=== PATIENT | male | born 1950 | race Caucasian/White ===

== ENCOUNTER 2019-07-13 14:30 | Inpatient (IN) ==
--- NOTE | 2019-07-13 14:56 | EKG Report ---
Test Performed on : 07/13/2019 2:52:46 PM Test Reason : cp Blood Pressure : / mmHG Vent. Rate : 079 BPM Atrial Rate : 079 BPM P-R Int : 132 ms QRS Dur : 092 ms QT Int : 404 ms P-R-T Axes : 034 014 136 degrees QTc Int : 463 ms Normal sinus rhythm. Inferior infarct (cited on or before 20-NOV-2018) ST & T wave abnormality, consider lateral ischemia Abnormal ECG When compared with ECG of 20-NOV-2018 18:29, T wave inversion more evident in Lateral leads Unconfirmed Result
[2019-07-13] MEDS ORDERED: ZOFRAN IV ONE (14:59)
--- NOTE | 2019-07-13 15:34 | Diag Imaging Result Doc PS360 ---
CHEST-1 VIEW - 07/13/2019 INDICATION: cp COMPARISON: 11/20/2018 FINDINGS: Stable sternotomy changes. The lungs are clear. Heart size is normal. No pneumothorax or pleural effusion. IMPRESSION: No acute disease or change from prior. Electronically signed by Jorge A Lopez 07/13/2019 3:32 PM
[2019-07-13 15:55] LABS: BASO# 0.04 X1000 (0.0-0.2); BASO% 0.5 % (0.0-0.8); EOS# 0.11 X1000 (0.0-0.7); EOS% 1.3 % (0.0-10.0); HEMATOCRIT 35.9 % (42.0-52.0); HEMOGLOBIN 11.7 g/dL (14.0-18.0); IMM GRAN# 0.09 X1000 (0.0-0.04); LYMPH# 1.39 X1000 (1.2-3.4); LYMPH% 16.2 % (20.5-51.1); MCH 27.6 PG (27-31); MCHC 32.6 g/dL (33-37); MCV 84.7 FL (81-99); MONO# 0.89 X1000 (0.11-0.59); MONO% 10.3 % (1.7-9.3); MPV 10.4 FL (7.4-10.4); NEUT# 6.08 X1000 (1.4-6.5); NEUT% 70.7 % (42.2-75.2); PLT 211 X1000 (130-400); RBC 4.24 XMIL (4.7-6.1); RDW 13.6 % (11.5-14.5)
[2019-07-13 16:14] LABS: ALB/GLOB RATIO 1.6; ALBUMIN 4.5 g/dL (3.5-5.0); CALCIUM 9.7 mg/dL (8.8-10.2); CREATININE 1.5 mg/dL (0.7-1.2); POTASSIUM 4.9 mmol/L (3.5-5.1); TOTAL BILIRUBIN 0.59 mg/dL (0.20-1.00); TOTAL PROTEIN 7.3 g/dL (6.3-8.3)
[2019-07-13] MEDS ORDERED: DILAUDID IV ONE (17:07)
[2019-07-13 17:42] LABS: INR 1.18; PROTIME 15.2 Seconds (11.0-16.0); PTT 26.7 Seconds (22.3-41.8)
--- NOTE | 2019-07-13 18:25 | PROVIDER DOCUMENTATION ---
This chart was entered by Delia Diaz Scribe, acting as scribe for Jordan Interiano MD. HPI-Chest Pain - General Stated Complaint: CP Time Seen by Provider: 07/13/19 14:49 Source: patient, family Allergies/Adverse Reactions: Patient Allergies Allergy/AdvReac Type Severity Reaction Status Date / Time No Known Allergies Allergy Verified 11/20/18 18:43 Home Medications: Home Medication List Medication Instructions Recorded Confirmed Last Taken Type ATORVAstatin [Lipitor] 40 mg PO DAILY 03/25/17 07/13/19 09/01/18 23:00 History Insulin Aspart [Novolog Flexpen] 23 units SQ AC 03/25/17 07/13/19 09/01/18 23:00 History Insulin Detemir [Levemir] 78 units SQ BID 03/25/17 07/13/19 09/01/18 23:00 History Isosorbide Dinitrate 60 mg PO DAILY 03/25/17 07/13/19 09/01/18 23:00 History Metformin [Glucophage] 1,000 mg PO BID 03/25/17 07/13/19 09/01/18 23:00 History Omeprazole 20 mg PO DAILY 03/25/17 07/13/19 09/01/18 23:00 History Carvedilol 3.125 mg PO BID 06/09/18 07/13/19 09/01/18 23:00 History Cyanocobalamin [Vitamin B-12] 500 mcg PO BID 06/09/18 07/13/19 09/01/18 23:00 History Clopidogrel Bisulfate [Clopidogrel] 75 mg PO QAM 07/13/19 07/13/19 Unknown History Ranolazine [Ranolazine ER] 1,000 mg PO QAM 07/13/19 07/13/19 Unknown History Torsemide [Demadex] 20 mg PO QAM 07/13/19 07/13/19 Unknown History Valsartan 160 mg PO QAM 07/13/19 07/13/19 Unknown History - History of Present Illness-CP Nature of Presenting Problem: 69yom presents to ED by EMS cc left side chest pain under left breast that doesn't radiate anywhere, N/V, lightheaded and dizzy for last 3 days that is increasing. at bedside and reports pt got pale/padilla/weak while outside earlier and did this same thing when he was seen in ED in October for a [place]. Pt has hx of DM, HTN and [place] w/bypass and stents. Pt is in no acute distress upon exam. Location: reports: central (left side) Chest Pain Radiation: reports: no radiation Severity in ED: mild Onset/Duration: 3 days ago Timing: improving Context/Activities at Onset: reports: light activity Associated Symptoms: reports: dizziness, nausea, vomiting, weakness Prior Chest Pain/Cardiac Workup: reports: heart attack Similar Symptoms Previously?: Yes Recently Seen Here or By Another Healthcare Provider: No Review of Systems - Adult - REVIEW OF SYSTEMS - ADULT Constitutional: reports: see HPI, fatique. denies: chills, fever Eyes: reports: no symptoms reported Ears, Nose, Mouth & Throat: reports: no symptoms reported Cardiovascular: reports: see HPI, chest pain. denies: palpitations, syncope Respiratory: reports: no symptoms reported Gastrointestinal: reports: see HPI, nausea, vomiting Genitourinary: reports: no symptoms reported Musculoskeletal: reports: no symptoms reported Integumentary: reports: no symptoms reported Neurological: reports: see HPI, dizziness/vertigo. denies: syncope Psychiatric: reports: no symptoms reported Endocrine: reports: no symptoms reported Hematologic/Lymphatic: reports: no symptoms reported Allergic/Immunologic: reports: no symptoms reported All Other Systems: Reviewed and Negative Past History - Adult - PAST MEDICAL HISTORY-ADULT Review of Records: reports: Nursing Assessment Review, Medications Reviewed, Social history reviewed & non-contributory. Major Childhood Illnesses: reports: denies history Cardiovascular: reports: CAD, HTN Respiratory: reports: denies history Gastrointestinal: reports: denies history Obstetrical/Gynecological: reports: denies history Genitourinary: reports: denies history Musculoskeletal: reports: denies history Neurological: reports: denies history Endocrine/Immune: reports: anemia, Diabetes Other Conditions: reports: denies history - PRIOR SURGERIES/PROCEDURES Surgical/Procedure History: reports: CABG, other - IMMUNIZATION STATUS Childhood Immunizations: See Nurse Assessment Flu Vaccine: See Nurse Assessment - FAMILY HISTORY Family History: reviewed, not pertinent Physical Exam-General - PHYSICAL EXAM-ADULT Initial Vital Signs Reviewed: Yes - CONSTITUTIONAL General Appearance: appears well, alert, no apparent distress. negative: anxious, combative - EYES Eyes: PERRL/EOMI, pink conjunctivae. negative: photophobia - HEAD, EARS, NOSE, MOUTH & THROAT HENMT: normocephalic/atraumatic, moist mucous membranes - NECK Neck: non-tender, full range of motion, supple - RESPIRATORY Respiratory: chest non-tender, lungs clear, normal breath sounds. negative: rhonchi, wheezing - CARDIOVASCULAR Cardiovascular: normal peripheral pulses, regular rate, rhythm, no edema. negative: bradycardia, tachycardia - GASTROINTESTINAL (ABDOMEN) Abdominal Exam: normal bowel sounds, non tender, soft. negative: guarding, rebound - LYMPHATIC Lymphatic: no adenopathy - MUSCULOSKELETAL Extremity: normal range of motion, normal inspection. negative: deformity - SKIN Integumentary: normal color. negative: diaphoresis, jaundice - PSYCHIATRIC Psych/Mental Status: normal mood/affect, oriented x 3. negative: anxious, disheveled - HEART Score HEART Score: History: Highly Suspicious HEART Score: ECG: Non-Specific Repolarization Disturbance/LBBB/PM HEART Score: Age: > or = 65 Years HEART Score: Risk Factors for Atherosclerotic Disease: > or = 3 Risk Factors or History of Atherosclerotic Disease HEART Score: Troponin: < or = Normal Limit Total HEART Score:: 7 Progress - PLAN OF CARE/RESULTS Progress/Plan/Lab Results: Vital Signs - 8 hr 07/13/19 14:45 07/13/19 14:46 07/13/19 14:47 Temperature 98.4 F Pulse Rate 81 85 80 Respiratory Rate 23 21 17 Blood Pressure 157/79 157/79 O2 Sat by Pulse Oximetry 98 07/13/19 15:00 07/13/19 15:03 07/13/19 15:15 Temperature Pulse Rate 78 80 78 Respiratory Rate 16 16 15 Blood Pressure 146/59 O2 Sat by Pulse Oximetry 98 97 96 07/13/19 15:30 07/13/19 15:33 07/13/19 15:45 Temperature Pulse Rate 74 72 73 Respiratory Rate 17 15 17 Blood Pressure 101/46 O2 Sat by Pulse Oximetry 97 94 L 94 L 07/13/19 16:00 07/13/19 16:02 07/13/19 16:15 Temperature Pulse Rate 79 72 70 Respiratory Rate 14 14 13 Blood Pressure 120/51 O2 Sat by Pulse Oximetry 95 94 L 92 L Laboratory Results - last 24 hr 07/13/19 07/13/19 07/13/19 14:57 14:57 14:57 WBC 8.60 RBC 4.24 L Hgb 11.7 L Hct 35.9 L MCV 84.7 MCH 27.6 MCHC 32.6 L RDW Std Deviation 13.6 Plt Count 211 MPV 10.4 Immature Gran % (Auto) 1.0 H Neut % (Auto) 70.7 Lymph % (Auto) 16.2 L [place] % (Auto) 10.3 H Eos % (Auto) 1.3 Baso % (Auto) 0.5 Immature Gran # (Auto) 0.09 H Neut # (Auto) 6.08 Lymph # (Auto) 1.39 [place] # (Auto) 0.89 H Eos # (Auto) 0.11 Baso # (Auto) 0.04 PT INR PTT (Actin FS) Sodium 138 Potassium 4.9 Chloride 99 Carbon Dioxide 26 Anion Gap 13 BUN 18 Creatinine 1.5 H Estimated GFR/1.73 m2 46 BUN/Creatinine Ratio 12 Glucose 191 H POC Glucose Calculated Osmolality 283 Calcium 9.7 Total Bilirubin 0.59 AST 20 ALT 14 Alkaline Phosphatase 60 Troponin T Uvb-[id number]-Jiszubvvpyx Pept 378 H Total Protein 7.3 Albumin 4.5 Globulin 2.8 Albumin/Globulin Ratio 1.6 07/13/19 07/13/19 07/13/19 14:57 16:18 17:27 WBC RBC Hgb Hct MCV MCH MCHC RDW Std Deviation Plt Count MPV Immature Gran % (Auto) Neut % (Auto) Lymph % (Auto) [place] % (Auto) Eos % (Auto) Baso % (Auto) Immature Gran # (Auto) Neut # (Auto) Lymph # (Auto) [place] # (Auto) Eos # (Auto) Baso # (Auto) PT 15.2 INR 1.18 PTT (Actin FS) 26.7 Sodium Potassium Chloride Carbon Dioxide Anion Gap BUN Creatinine Estimated GFR/1.73 m2 BUN/Creatinine Ratio Glucose POC Glucose 161 H Calculated Osmolality Calcium Total Bilirubin AST ALT Alkaline Phosphatase Troponin T < 0.010 Kbl-[id number]-Vbkwddmblig Pept Total Protein Albumin Globulin Albumin/Globulin Ratio Orders Category Date Time Status Nursing- Obtain EKG ONCE Care 07/13/19 14:51 Active CHEST-1 VIEW [RAD] Stat Exams 07/13/19 14:51 Completed CBC WITH ELECTRONIC DIFF [HEME] Stat Lab 07/13/19 14:57 Completed COMPREHENSIVE METABOLIC PANEL [CHEM] Stat Lab 07/13/19 14:57 Completed PRO B-NATRIURETIC PEPTIDE Stat Lab 07/13/19 14:57 Completed PROTIME WITH INR [COAG] Stat Lab 07/13/19 17:27 Completed PTT [COAG] Stat Lab 07/13/19 17:27 Completed TROPONIN T Stat Lab 07/13/19 14:57 Completed Hydromorphone [Dilaudid] Med 07/13/19 17:07 Discontinued 1 mg IV NOW ONE Ondansetron [Zofran] Med 07/13/19 14:59 Discontinued 4 mg IV NOW ONE EKG [EKG] Stat Ther 07/13/19 14:51 Draft Result Diagrams: 07/13/19 14:57 07/13/19 14:57 - EKG 1 Time of EKG reading by physician:: 15:05 EKG Read and Signed by:: Jordan Interiano EKG Interpretation (*Must complete 3 of following elements*): Abnormal (inferior infarct ST & T wave abnormality consider lateral ischemia) Rate: 79 Rhythm: nsr QRS: normal DC Interval: normal - XRAY 1 XRAY: Bilateral XRAY Study: Chest Impression: See EMR Report (IMPRESSION: No acute disease or change from prior. Electronically signed by Jorge A Lopez 07/13/2019 3:32 PM) - CONSULTS/PCP/HOSPITALIST Notification #1 *Consult/PCP/Hospitalist*: Dr Grande Time Discussed: 18:24 Consult Disposition: Will see in ED, Admit Departure - Departure Date of Disposition Decision: 07/13/19 Time of Disposition Decision: 18:23 DIAGNOSIS: Chest pain, Near syncope Disposition: ADMITTED INPATIENT 09 Certified Medical Emergency: Emergent Condition: Fair Additional Instructions: ED Follow Up Instructions: You have been treated by a care provider in the Emergency Department. These instructions are being provided to you so you can have an understanding of how t o care for yourself upon discharge. Upon discharge from the Emergency Department, you are responsible for making arrangements for follow-up care by a physician of your choice. Take all prescribed medications as directed. Return to the Emergency Department immediately for any new or worsening symp toms. You may call the Physician Referral phone number at [phone] to obtain a list of Physicians who are taking new patients. Referrals and Follow-Ups: Joey,Hiteshri S., MD [Primary Care Provider] - - Critical Care Note This patient required my direct & personal management of CC.: No Attestation - Physician/ KIERSTEN Attestation Patient care was provided by Advanced Practice Provider:: No The physician spent face to face time with patient:: Yes Advanced Practice Provider documentation review:: Supervising physician onsite and consulted in the evaluation and care of this patient. The physician did have a face to face encounter with the patient. This chart was documented by the indicated scribe, (Delia Diaz Scribe) and accurately reflects the services I performed and decisions made by me, Jordan Interiano MD, as attested by the provider's signature.
[2019-07-13] MEDS ORDERED: ZOFRAN IV PRN (18:44)
--- NOTE | 2019-07-13 19:49 | HISTORY AND PHYSICAL ---
PRIMARY CARE PHYSICIAN: Dr. Cook. ROCKET SCIENTIST: Dr. Tolbert. HISTORY OF PRESENTING COMPLAINT: Mr. Gamez is a 69-year-old brittle diabetic patient on insulin regimen, hypertension, ischemic cardiomyopathy status post CABG and multiple stents, last stent was October of this year. Follows up with Dr. Tolbert in [place] [place]. Mr. Gamez refers that he also has chronic diarrhea. Mr. Gamez refers that for the past couple of weeks, he has been having excessive nausea and vomiting associated with profuse diarrhea. He said he normally has diarrhea, but it has been more frequent lately in the past week or 2. This morning, he was working with his , doing some work on a car, and after he stood up he felt quite nauseated, so he went to sit down in a chair. He felt even weaker and he felt like he was going to pass out. According to the , Mr. Gamez looked pale and there were a couple instances that she thinks Mr. Gamez really passed out. He did vomit prior to that. Mr. Gamez also did complain of some chest discomfort during the episode of almost blacking out. He was brought into the emergency department where he was evaluated. He was found to have initial vitals, blood pressure was 157/79, pulse of 81, respiration was 23, temperature 98.4 degrees. PAST MEDICAL HISTORY: 1. Diabetes mellitus. 2. Hypertension. 3. Coronary artery disease. 4. Dyslipidemia. 5. Severe degenerative disk back disease. PAST SURGICAL HISTORY: 1. CABG. 2. Multiple stents. HOME MEDICATIONS: Include: 1. Insulin. 2. Levemir 78 units b.i.d. 3. Atorvastatin 40 mg p.o. daily. 4. Isosorbide 60 mg p.o. daily. 5. NovoLog 23 units subcutaneous. 6. Metformin 1000 mg b.i.d. 7. Omeprazole 20 mg p.o. daily. 8. Carvedilol 3.125 b.i.d. 9. Cyanocobalamin. 10. Torsemide 20 mg p.o. in the morning. 11.1000 mg p.o. in the morning. 12. Losartan 160 p.o. in the morning. 13. Clopidogrel 75 mg p.o. in the morning. FAMILY HISTORY: Positive for almost every family member with ischemic cardiomyopathy including brother, mother, father, grandparents. SOCIAL HISTORY: Mr. Gamez stopped smoking about 20 some years ago. Denies any tobacco use currently. Denies any alcohol use. Currently , lives with the . He is currently disabled. ALLERGIES: None known. REVIEW OF SYSTEMS: A 14 point review of system conducted with Mr. Gamez, unremarkable except what we have in the HPI. Specifically, Mr. Gamez refers that he denies any cough. No sputum production. No fever, no headaches. PHYSICAL EXAMINATION: VITAL SIGNS: Current blood pressure was 109/54, with a pulse of 71 on supine. Sitting up, blood pressure was 104/50 with a pulse of 74. The patient did feel slightly dizzy and nauseated after he sat up. GENERAL: Mr. Gamez is a 69-year-old gentleman. He was in bed. He did not seem to be in any cardiopulmonary distress. HEENT: Mucosa was pink and moist. Anicteric. Acyanotic. Head is normocephalic and atraumatic. NECK: Supple. CHEST: There is good air entry bilaterally. No crepitations. No rhonchi. There was no accessory muscle use. CARDIOVASCULAR: Regular rate and rhythm. No murmurs, no rubs, no gallops. [place] beat was at the 5th intercostal space, midclavicular line. There is an old sternotomy scar on the anterior chest wall. ABDOMEN: Soft, nontender. Bowel sounds present. No hepatosplenomegaly. EXTREMITIES: No pedal edema. Distal pulses are present but remarkably low. GENITOURINARY: Was not examined. CENTRAL NERVOUS SYSTEM: Patient was awake, alert, and oriented. Slightly dizzy but the power was 5/5 in all extremities. Sensation was intact. Cranial nerves 2-12 were grossly examined and they were unremarkable. LABORATORY DATA: Has also been reviewed. There is mild normocytic anemia with normal platelet count and normal WBC. Creatinine is slightly elevated at 1.5. IMAGING STUDIES: A chest x-ray shows no acute disease. EKG shows normal sinus rhythm with some T- wave inversion in the lateral leads. There are also remarkable Q-waves in the inferior leads. These changes were also on an EKG in October of this year, no changes. ASSESSMENT: Mr. Gamez with multiple comorbidities who presented with near syncope/syncopal episode. 1. Near-syncope/syncopal episode presumably related to volume depletion and vasovagal reaction. 2. Extensive history of coronary artery disease status post CABG, stents. The patient also complained of chest pain which I think could be related to the syncopal episode. However, I think it is reasonable to rule out any acute coronary syndrome in him. His troponins have been checked once, unremarkable. Will continue to trend this. 3. Acute kidney injury presumably from volume depletion. We will gently hydrate him overnight. I have withheld his Lasix and his ARB. 4. History of diabetes mellitus. We will continue with insulin regimen. 5. Hypertension, controlled. 6. Dyslipidemia. PLAN: So in general, we are going to admit Mr. Gamez in [facility] under tele monitoring. I have withheld his Lasix and his blood pressure medication. Would hydrate him over the course of tonight, trend his troponins, and repeat his EKG in the morning, and we will consult Cardiology to evaluate him. We will also request his recent stress test result from Dr. Tolbert's office. cc: Jose J Grande MD MTDD
[2019-07-13] MEDS: LOVENOX SUBQ SCH (21:02)
[2019-07-13] MEDS: NS 1,000 ML IV SCH (21:02)
[2019-07-14] MEDS: COREG PO SCH ×3 (00:07→21:24)
[2019-07-14 06:18] LABS: BASO# 0.03 X1000 (0.0-0.2); BASO% 0.4 % (0.0-0.8); EOS# 0.13 X1000 (0.0-0.7); EOS% 1.8 % (0.0-10.0); HEMATOCRIT 33.1 % (42.0-52.0); HEMOGLOBIN 10.7 g/dL (14.0-18.0); IMM GRAN# 0.07 X1000 (0.0-0.04); LYMPH# 1.57 X1000 (1.2-3.4); LYMPH% 22.2 % (20.5-51.1); MCH 27.9 PG (27-31); MCHC 32.3 g/dL (33-37); MCV 86.2 FL (81-99); MONO# 0.72 X1000 (0.11-0.59); MONO% 10.2 % (1.7-9.3); MPV 10.7 FL (7.4-10.4); NEUT# 4.54 X1000 (1.4-6.5); NEUT% 64.4 % (42.2-75.2); PLT 191 X1000 (130-400); RBC 3.84 XMIL (4.7-6.1); RDW 13.6 % (11.5-14.5); WBC 7.06 X1000 (4.8-10.8)
[2019-07-14 06:20] LABS: INR 1.2; PROTIME 15.4 Seconds (11.0-16.0)
[2019-07-14 06:33] LABS: ALB/GLOB RATIO 1.4; ALBUMIN 3.9 g/dL (3.5-5.0); CALCIUM 8.5 mg/dL (8.8-10.2); POTASSIUM 4.5 mmol/L (3.5-5.1); TOTAL BILIRUBIN 0.32 mg/dL (0.20-1.00); TOTAL PROTEIN 6.6 g/dL (6.3-8.3)
[2019-07-14] MEDS: NS 1,000 ML IV SCH ×2 (06:36→18:04)
[2019-07-14] MEDS: IMDUR PO SCH (09:12)
[2019-07-14] MEDS: PRILOSEC PO SCH (09:12)
[2019-07-14] MEDS: RANEXA PO SCH (09:12)
--- NOTE | 2019-07-14 09:53 | Diag Imaging Result Doc PS360 ---
EXAM: US RENAL 2 (RETROPER) COMPLETE INDICATION: erickson/arf TECHNIQUE: COMPARISON: None. FINDINGS: The kidneys appear normal in echotexture with no discrete renal mass or hydronephrosis. The right kidney measures 12.8 cm and the left kidney measures 14 cm in the greatest longitudinal axes. Right renal cortex measures 1.6 cm and the left renal cortex measures 1.4 cm in thickness. Urinary bladder is grossly unremarkable. IMPRESSION: Unremarkable renal ultrasound. Electronically signed by Chapin Griffith 07/14/2019 9:51 AM
--- NOTE | 2019-07-14 09:53 | EKG Report ---
Test Performed on : 07/14/2019 09:45:10 AM Test Reason : chest pain Blood Pressure : / mmHG Vent. Rate : 073 BPM Atrial Rate : 073 BPM P-R Int : 128 ms QRS Dur : 098 ms QT Int : 432 ms P-R-T Axes : 036 017 140 degrees QTc Int : 475 ms Normal sinus rhythm. ST & T wave abnormality, consider lateral ischemia Prolonged QT Abnormal ECG When compared with ECG of 13-JUL-2019 14:52, (Unconfirmed) No significant change was found Confirmed by Mark HUDSON, Scott Leal ([id number]) on 07/15/2019 3:39:59 PM
[2019-07-14 10:18] LABS: HEMOGLOBIN A1C 9.2 % (4.8-6.0)
[2019-07-14] MEDS: HUMALOG SUBQ SCH ×2 (11:43→18:03)
--- NOTE | 2019-07-14 12:10 | PROGRESS NOTE ---
DATE: 07/14/2019 SUBJECTIVE: This morning, Mr. Gamez refers to be doing remarkably well. No nausea. No vomiting. He denies any chest pain. He has been up and gone to the restroom. He does not feel any dizziness and he has not felt any sensation to black out. He had orthostatic vitals done this morning as well. His systolic blood pressure on standing went down to about 126 from 139 supine but it was not diagnostic for orthostatic hypotension. OBJECTIVE: Current Vital Signs: Blood pressure is 136/56, pulse of 73, respirations are 21, temperature is 98.1 degrees. General Examination: Mr. Gamez is a 69-year-old, gentleman. He was in bed. No distress. HEENT: Mucosa is pink and moist. Anicteric. Acyanotic. Neck: Supple. Chest: Good air entry bilaterally. There were no crepitations, no rhonchi. Cardiovascular: Regular rate and rhythm. There were no murmurs, no rubs, no gallops. There is an old sternotomy scar on the anterior chest wall. GI: Abdomen was soft, nontender. Bowel sounds present. Extremities: No pedal edema. Distal pulses are present but low. VFX ARTIST: The patient was awake, alert, oriented. There is no focal neurological deficit. Laboratory Data: There is mild normocytic anemia. Chemistry shows that the creatinine went up to 2.0. The patient did have a normal creatinine in March of this year. We are still awaiting for the urinalysis. Ultrasound of the kidney this morning shows that it is unremarkable. ASSESSMENT: 1. Near-syncope/syncopal episode on admission, most likely due to orthostatic hypotension versus a vasovagal reaction. Patient refers to be doing a lot better, has not had any more near syncopal episodes. 2. Extensive coronary artery disease, status post coronary artery bypass graft and multiple stents. I have reviewed the latest stress test that was done on Mr. Gamez by Dr. Tolbert. It does show that there was some reversible defect which was consistent with myocardial ischemia. Cardiology is on board. I think the plan will ultimately be to get him to [place] for intervention evaluation. 3. Acute kidney injury care. The ultrasound of the abdomen ruled out any obstructive pattern. The patient seems to be making adequate urine. I have withheld his diuretics as well as his ARBs, pending urinalysis. 4. History of uncontrolled diabetes mellitus with presenting A1c of 9.2. We have started the patient back on his insulin regimen and we will titrate this for better glycemic control. 5. Hypertension, stable. 6. Clinical volume depletion on admission associated with suspected orthostatic hypotension, improved. 7. Dyslipidemia/hypertension. PLAN: In general, I think Mr. Gamez is doing well. His troponins have been trended 3 times and they are all negative. His orthostatic vitals this morning were nondiagnostic. Despite standing, the systolic blood pressure went slightly low. It is very possible that after hydration, that got better. He, however, denies any faint feelings or any dizziness, has not had any more syncopal spells. His stress test from Dr. Tolbert's office was abnormal for a reversible defect. Cardiology has been consulted and we will follow up with further recommendations from them. We are also trending his renal functions. It appears that this is multifactorial including volume depletion and medication side effects including diuretics and ARBs. These have been withheld and we will follow up with his urine studies. cc: Jose J Grande MD
[2019-07-14] MEDS: LEVEMIR SUBQ SCH ×2 (12:16→21:23)
--- NOTE | 2019-07-14 12:49 | CONSULTATION ---
DATE OF CONSULTATION: 07/14/2019 IMPRESSION: 1. Near syncope, probably due to intravascular volume depletion in the setting of recent nausea and vomiting as well as recent diarrhea. Lab data suggests prerenal azotemia, also consistent with intravascular volume depletion. 2. Atherosclerotic coronary disease. Patient is status post coronary artery bypass grafting in February 2016. He is status post several angioplasties/stent procedures to vein grafts since his coronary bypass surgery including PCI/stent of saphenous vein graft to obtuse marginal in September 2017 with a drug-eluting stent. He recently had Lexiscan myocardial perfusion study which indicated a medium-sized, medium grade anterolateral defect with reversibility suggesting inducible myocardial ischemia in this region. Left ventricular ejection fraction was 41%. 3. Type 2 diabetes mellitus. 4. Hypertension. 5. Hyperlipidemia. RECOMMENDATIONS: 1. Agree with intravascular fluid replacement. 2. Try and improve his tendency for nausea and vomiting possibly related to gastroparesis. 3. Continue medical management of coronary atherosclerosis at this time. He has had a few chest symptoms that are atypical but nothing that sounds like angina. 4. Once the patient is clinically stabilized from a volume standpoint, it would be reasonable for him to be discharged to follow up with his regular optician apprentice, Dr. Tolbert. HISTORY: This 69-year-old white male with history of previous coronary artery bypass grafting in 2015, subsequent angioplasty/stenting of saphenous vein graft to obtuse marginal in September 2017, ischemic cardiomyopathy with left ventricular ejection fraction of 41%, hypertension, hyperlipidemia, type 2 diabetes mellitus, and previous atrial fibrillation, was admitted with near- syncope and hypotension. He has had recent problems with diarrhea earlier in the week and started having nausea and vomiting as well. Yesterday he was assisting his in changing tires on his car. As he strained to lift tires, he became very lightheaded and almost passed out. He appeared "villafana" to his . She got him into the house and checked his blood pressure and relates his systolic blood pressure was 70. EMS was summoned and brought him to the hospital for evaluation, after which he was admitted. Labs suggested prerenal azotemia and he is receiving IV fluids. He is starting to feel better. He has a few fleeting left anterior chest discomfort but nothing that sounds like angina. He recently had followup Lexiscan sestamibi study with his regular optician apprentice, Dr. Tolbert, which was abnormal as outlined above. He has follow up with Dr. Tolbert on July 16. PAST MEDICAL HISTORY: 1. Atherosclerotic coronary artery disease as outlined above. 2. Hypertension. 3. Hyperlipidemia. 4. Previous atrial fibrillation. 5. Type 2 diabetes mellitus. 6. Gastroesophageal reflux disease. 7. Previous anemia with history of GI blood loss in the past. PAST SURGICAL HISTORY: Includes previous coronary artery bypass surgery and previous coronary angioplasty/stent procedures to saphenous vein grafts. ALLERGIES: He is allergic or intolerant to tramadol. MEDICATIONS PRIOR TO ADMISSION: As listed. SOCIAL HISTORY: He is and lives in the [facility]. He does not smoke or use alcohol. He is disabled. FAMILY HISTORY: Positive for coronary artery disease. REVIEW OF SYSTEMS: Pulmonary: Negative. Gastrointestinal: Noncontributory beyond history of present illness. There has been no melena. Constitutional: Noncontributory beyond history of present illness. Remainder of review of systems negative/noncontributory beyond history of present illness with 14 total systems reviewed. PHYSICAL EXAMINATION: General: This is a pleasant, overweight, older white male, in no distress. Vital signs: Blood pressure 139/64, heart rate 69. HEENT: Extraocular movements appear intact. Mucous membranes are moist. Neck: Supple without jugular venous distention. There are no carotid bruits. Chest: Clear to auscultation bilaterally. Cardiac: Reveals a regular rate and rhythm without appreciable murmur or gallop. Abdomen: Soft. Bowel sounds are normal. Extremities: Warm without edema. Neurologic: Reveals him to be alert and fully oriented. Speech is fluent. He moves all 4 extremities equally well. Skin: Warm, dry. Psychiatric: Reveals the mood to be appropriate. DIAGNOSTIC DATA: 12 lead EKG demonstrates sinus rhythm and probable inferior infarct of undetermined age. ST and T-wave abnormalities demonstrated, consider lateral ischemia. LABORATORY DATA: Includes a sodium 136, potassium 4.5, chloride 99, carbon dioxide 25, BUN 27, creatinine 2.0, glucose 277. Troponin T less than 0.01. Followup troponin T less than 0.01, and less than 0.01. White blood cell count 7.06, hematocrit 33.1, hemoglobin 10.7, platelet count 191,000. cc: Kiko Welch MD
[2019-07-14] MEDS: ZYRTEC PO SCH (14:47)
[2019-07-14] MEDS: TYLENOL PO PRN ×2 (14:47→21:33)
[2019-07-14] MEDS: LOVENOX SUBQ SCH (18:03)
[2019-07-14] MEDS ORDERED: LIPITOR PO SCH (21:00)
[2019-07-15] MEDS ORDERED: INSULIN PEN NEEDLES ONE (05:55)
[2019-07-15 06:26] LABS: ALBUMIN 3.9 g/dL (3.5-5.0); CALCIUM 8.8 mg/dL (8.8-10.2); CREATININE 1.2 mg/dL (0.7-1.2); PHOSPHORUS 3.4 mg/dL (2.7-4.5); POTASSIUM 4.1 mmol/L (3.5-5.1)
[2019-07-15] MEDS: PRILOSEC PO SCH (06:26)
[2019-07-15] MEDS: HUMALOG SUBQ SCH (06:26)
[2019-07-15] MEDS ORDERED: SYNTHROID PO SCH (07:00)
[2019-07-15] MEDS: LEVEMIR SUBQ SCH (08:22)
[2019-07-15] MEDS: COREG PO SCH (08:23)
[2019-07-15] MEDS: RANEXA PO SCH (08:23)
[2019-07-15] MEDS: ZYRTEC PO SCH (08:23)
[2019-07-15] MEDS: IMDUR PO SCH (08:23)
[2019-07-15 11:27] VITALS: BP 150/54
--- NOTE | 2019-07-15 21:06 | DISCHARGE SUMMARY ---
ADMISSION DATE: 07/13/2019 DISCHARGE DATE: 07/15/2019 DISPOSITION: Home. FOLLOWUP: 1. Dr. Cook. 2. Dr. Tolbert. 3. Dr. Welch. CONSULTATIONS DURING THIS ADMISSION: Cardiology was consulted. The patient was seen by Dr. Welch. INVASIVE PROCEDURES DONE DURING THIS ADMISSION: None. IMAGING STUDIES OF SIGNIFICANCE: 1. A chest x-ray was done which showed no acute disease. 2. A renal ultrasound showed unremarkable ultrasound. ADMISSION DIAGNOSES: 1. Near syncope. 2. Extensive history of coronary artery disease status post coronary artery bypass grafting and stents. 3. Acute kidney injury. 4. Diabetes mellitus. 5. Hypertension. DIAGNOSES AT THE TIME OF DISCHARGE: 1. Near syncope on admission secondary to orthostatic hypotension versus vasovagal reaction. 2. Extensive coronary artery disease status post coronary artery bypass grafting and multiple stents. 3. Acute kidney injury secondary to volume depletion. 4. Uncontrolled diabetes mellitus with presenting A1c of 9.2. 5. Hypertension. 6. Clinical volume depletion. 7. Dyslipidemia/hypertension. 8. Newly diagnosed hypothyroidism. 9. Allergies/sinusitis. DISCHARGE MEDICATIONS: 1. Insulin Levemir 78 units b.i.d. 2. Lipitor 40 mg daily. 3. Isosorbide 60 mg p.o. daily. 4. Aspart 20 units subcutaneously before meals. 5. Metformin 1000 mg b.i.d. 6. Omeprazole 20 mg daily. 7. Carvedilol 3.125 mg b.i.d. 8. 000 mg p.o. every morning. 9. Valsartan 160 mg p.o. every morning. 10.Clopidogrel 75 mg p.o. every morning. 11.Levothyroxine 50 mcg p.o. daily. 12.Cetirizine 10 mg p.o. daily. MEDICATIONS THAT HAVE BEEN WITHHELD: Torsemide, until patient reviews with his ironer machine. PRESENTING COMPLAINT: Syncope. HISTORY OF PRESENTING COMPLAINT: Mr. Gamez is a 69-year-old gentleman who came in to the emergency department after he sustained a near syncope/possible passing out. He refers that he was working on a car, and then he tried to stand up. He became dizzy and sweaty and somewhat pale and felt like passing out. Family brought him to the emergency department. He was not overly orthostatic, but his orthostatic vitals were not completely normal. He was admitted overnight. He was found to have a creatinine that was also bumped up to 1.5. It even went to 2.0 at some point. He was hydrated throughout the course of the hospital stay, and creatinine normalized at 1.2. The patient was evaluated by Cardiology. Medical records were obtained from Dr. Tolbert's office which revealed that a stress test which was recently done was pathological. Mr. Gamez has been advised to follow up with Dr. Tolbert on that stress test. This morning he feels a lot better. He has been up. He has used the restroom. He does not feel orthostatic. He does not feel dizzy any more. No sensation of wanting to pass out. He has been advised to hold off on the diuretic therapy until he sees his ironer machine. VITAL SIGNS: Blood pressure 150/54, pulse 70, respirations 18, temperature 97.3. The patient is saturating 100% on room air. DISPOSITION: Mr. Gamez is clinically stable for discharge. All the discharge instructions have been discussed with him. He voiced understanding. The was also at the bedside at the time of the discharge. Time spent for discharge is 38 minutes. cc: MD Isidra Mendez MD Sadasiva R. Katta, MD William D. Denney, MD MTDD
== END 2019-07-15 12:05 | disposition home or self-care (01) | DRG 312 ==
LOC: SUPCPDRO → ED 14:30 → 2N 19:39
PROVIDERS: ATTEND Internal Medicine